=== PATIENT | male | born 1990 | race Caucasian/White ===

== ENCOUNTER 2023-02-03 18:41 | Emergency (ER) | payer SELFPAY ==
[2023-02-03 18:59] VITALS: BP 142/77; PULSE 76; RESP 16; TEMP 36.9; O2SAT 97; BMI 34.0
--- NOTE | 2023-02-03 20:52 | CRLHL7_ITS ---
For Patients: As a result of the Century Cures Act, medical imaging exams and procedure reports are released immediately into your electronic medical record. You may view this report before your referring provider. If you have questions, please contact your health care provider. Indication: Testicular pain. Technique: Ultrasound of the scrotum and contents. Sonographic thomas-scale images were obtained with spectral and color Doppler waveform and spectral waveform analysis of the testicles. Comparison: None. Findings: Bother testicles are normal in size and echotexture. No masses. No suspicious calcifications. Arterial and venous color Doppler blood flow and spectral waveforms are present in both testicles. Epididymis: Bilateral epididymal head cysts, measuring up to 2.2 centimeters on the right side and 0.8 centimeters on the left side. Normal blood flow. Other: No significant hydrocele. No sign of varicocele. Scrotal wall is normal. Impression: Bilateral epididymal head cysts, measuring up to 2.2 centimeters on the right side is 0.8 centimeters on the left side. Otherwise, unremarkable ultrasound of the scrotum and contents. No sign of torsion or inflammation. Dictated by John Frey MD @ 02/03/2023 9:32:38 PM (Electronically Signed)
--- NOTE | 2023-02-03 21:16 | ED_ITS ---
HPI - General Adult General Date Seen: 02/03/23 Chief complaint: Groin Pain Stated complaint: Testicular pain Time Seen by Provider: 02/03/23 21:16 Source: patient, RN notes reviewed and old records reviewed Mode of arrival: ambulatory Limitations: no limitations History of Present Illness HPI narrative: Selvin is a very pleasant 32-year-old male with history of possible kidney stone who comes to the emergency room with acute onset of right groin pain. Patient notes that he was sitting typing when he had the onset of pain in his right testicle that would radiate upward. He notes that the pain was coming and weighs was gradually building to what he describes as a 10/10. He notes no recent injury chills or dysuria. Here in the emergency room he notes that the pain is at baseline of 4 and then will radiate up to a 10. Occasionally associated with nausea but no vomiting. Patient has chronically loose stools and this has not changed. He notes no dysuria hematuria. Upon his arrival he was triaged immediately for ultrasound given concern for testicular torsion. This has been returned as negative. Related Data Allergies Allergy/AdvReac Type Severity Reaction Status Date / Time buspirone [From BuSpar] AdvReac Severe Rash Verified 02/03/23 23:57 cefaclor [From Ceclor] AdvReac Severe Verified 02/03/23 23:57 ciprofloxacin [From Cipro] AdvReac Severe Rash Verified 02/03/23 23:57 levetiracetam [From Keppra] AdvReac Severe Confusion Verified 02/03/23 23:57 Review of Systems Status of ROS: Reports: 10 or more systems reviewed and unremarkable except as noted in History and below Const: Denies: fever, chills or fatigue ENMT: Denies: throat pain or difficulty swallowing Cardio: Denies: chest pain, palpitations, swelling of feet/ankles, lightheadedness or shortness of breath with exertion Resp: Denies: shortness of breath or cough GI: Reports: nausea and diarrhea (Chronic); Denies: abdominal pain, vomiting or difficulty swallowing : Reports: genital pain; Denies: painful urination, urinary frequency, blood in urine, penile discharge or scrotal swelling Musculo: Denies: back pain Endo: Denies: fatigue PFSH PFSH Social History Non-prescribed substance use: denies use Exam Narrative: Exam Narrative: Alert and oriented. Seems uncomfortable but not in no acute distress. EOM is full. Heart with a regular rate and rhythm and lungs are clear. Abdomen is tender right lower quadrant positive CVA tenderness with percussion which is felt in the right groin. Patient has some sensitivity noted in the extreme right lower quadrant. No real rebound tenderness however. I do not feel any masses. Exquisite tenderness of the right testicle is noted. No unusual appearance of the scrotum. Moving all extremities. Const: Vital Signs, click to edit/add: Vital Signs - 24 hr 02/03/23 18:59 Temperature 98.4 F Pulse Rate [Right Pulse Oximeter] 76 Respiratory Rate 16 Blood Pressure [Ri ght Upper Arm] 142/77 H Pulse Oximetry 97 Oxygen Delivery Me thod Room Air Documenting provider has reviewed patient's vital signs: yes Course Course Hospital Course: At this time patient has a negative ultrasound for torsion which is reassuring. He does have some cysts noted but no other abnormalities. I am awaiting a urine from him and thinks that we will need to proceed with a CT and blood work given the level of his discomfort. Differential diagnosis does include ureteral colic, kidney stone, epididymitis, hernia. Patient initially seen in triage and given ibuprofen. At this time will place an IV and give him morphine 4 mg and Zofran 4 mg. Reevaluation(s) Reevaluation #1: Reassuring CT at this time. Patient notes that pain much improved after morphine but seems to occasionally come in waves. Vital Signs Vital signs: Initial Vital Signs Temperature 98.4 F 02/03/23 18:59 Temperature Source Temporal Artery Scan 02/03/23 18:59 Pulse Rate 76 02/03/23 18:59 Pulse Rhythm Regular 02/03/23 18:59 Pulse Strength 3+ Normal 02/03/23 18:59 Respiratory Rate 16 02/03/23 18:59 Blood Pressure 142/77 H 02/03/23 18:59 Blood Pressure Mean 98 02/03/23 18:59 Blood Pressure Position Sitting 02/03/23 18:59 Pulse Oximetry 97 02/03/23 18:59 Oxygen Delivery Method Room Air 02/03/23 18:59 Vital Signs Temperature 98.4 F 02/03/23 18:59 Pulse Rate 76 02/03/23 18:59 Respiratory Rate 16 02/03/23 18:59 Blood Pressure 142/77 H 02/03/23 18:59 Pulse Oximetry 97 02/03/23 18:59 Oxygen Delivery Method Room Air 02/03/23 18:59 Temperature 98.4 F 02/03/23 18:59 Pulse Rate 76 02/03/23 18:59 Respiratory Rate 16 02/03/23 18:59 Blood Pressure 142/77 H 02/03/23 18:59 Pulse Oximetry 97 02/03/23 18:59 Oxygen Delivery Method Room Air 02/03/23 18:59 Medical Decision Making MDM Narrative Medical decision making narrative: 1. Groin pain-suspect epididymitis with tenderness of the testicle even though ultrasound is reassuring. No evidence of testicular torsion or mass. Patient does have 2.2 cm epididymal cyst. Will treat with doxycycline 100 mg p.o. b.i.d. for 14 days. Would ask that he follow-up with his primary MD if he does not have complete resolution of symptoms. If he actually has worsening symptoms he will need to return to the emergency room or seek attention with Urology. At this time no evidence of kidney stone, hematuria, UTI, scrotal infection, h ernia. 2. Disposition-home at this time. Seek medical attention for worsening symptoms. For pain patient may continue ibuprofen 600 mg p.o. q.8 hours p.r.n.. A small amount of [place] 5/325 1-2 tabs p.o. Q 4-6 hours p.r.n. continued pain is also issued via [employer]. Dictation done with voice recognition, and as a result, wrong word or [id number]-[id number] substitutions may have occurred.? There may be errors in the script that have gone undetected.? Please consider this when interpreting information found in this chart. Medical Records Medical records reviewed: Yes I reviewed the patient's medical records Lab Data Lab results reviewed: Yes I reviewed the patient's lab results Labs: Lab Results 02/03/23 02/03/23 Range/Units 21:56 22:25 WBC 7.15 (4.50-11.00) K/uL RBC 4.90 (4.30-5.90) m/uL Hgb 15.2 (13.5-17.5) gm/dL Hct 44.6 (37.0-53.0) % MCV 91 (80-100) fL MCH 31 (26-34) pg MCHC 34 (32-36) gm/dL RDW Coeff of [place] 12.3 (11.5-15.5) % Plt Count 278 (140-440) K/uL Neut % (Auto) 44.8 (42.0-72.0) % Lymph % (Auto) 40.8 (20-44) % Garland % (Auto) 11.0 (0.0-11.0) % Eos % (Auto) 2.8 (0.0-7.0) % Baso % (Auto) 0.3 (0.0-3.0) % Neut # (Auto) 3.20 (1.7-7.0) K/uL Lymph # (Auto) 2.92 H (0.90-2.90) K/uL Garland # (Auto) 0.80 (0.00-0.90) K/UL Eos # (Auto) 0.20 (0.00-0.50) K/uL Baso # (Auto) 0.02 (0.00-0.30) K/uL Sodium 136 (135-149) mmol/L Potassium 4.0 (3.6-5.1) mmol/L Chloride 103 (96-114) mmol/L Carbon Dioxide 28 (20-32) mmol/L BUN 11 (5-24) mg/dL Creatinine 0.8 (0.5-1.5) mg/dL Estimated Creat Clear 130.11 Estimated GFR 119 ml/min Glucose 97 (60-115) mg/dL Calcium 8.8 (8.4-10.6) mg/dL C-Reactive Protein 0.8 (0.5-1.0) mg/dL Urine Color Yellow (Yellow) Urine Appearance Clear (Clear) Urine pH 7.0 (5.0-8.5) Ur Specific [place] 1.020 (1.000-1.030) Urine Protein 1+ A (Negative) Urine Glucose (UA) Negative (Negative) Urine Ketones Trace A (Negative) Urine Blood Negative (Negative) Urine Nitrite Negative (Negative) Urine Bilirubin Negative (Negative) Urine Urobilinogen 0.2 (0.2-1.0) Ur Leukocyte Esterase Negative (Negative) Urine RBC 0-2 (0-2) Urine WBC 0-2 (0-5) Ur Squamous Epith Cells Few (None-Few) Amorphous Sediment Many A (None) Urine Bacteria Few A (None) C.trachomatis Ampl DNA NOT DETECTED (No Detected) N.gonorrhoeae Ampl DNA NOT DETECTED (No Detected) Imaging Data Scrotal ultrasound: Attestation: I have reviewed the pertinent imaging results. CT scan - abdomen: Attestation: I have reviewed the pertinent imaging results. My impression: I have CE no evidence of ureteral stone. Radiologist's impression: Lower chest: Scattered atelectasis. Liver: Unremarkable. Normal in size and attenuation. No suspicious masses. Gallbladder and bile ducts: Unremarkable. No stones or inflammation. No biliary dilatation. Pancreas: Unremarkable. No mass or inflammation. Spleen: Unremarkable. Normal in size. No masses. Adrenal glands: Unremarkable. No nodules. Kidneys: Unremarkable. No suspicious masses, stones, or hydronephrosis. GI tract: Mild colonic diverticulosis. 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 Normal in caliber. No sign of mass or inflammation. Normal appendix. Vasculature: Abdominal aorta is normal in caliber. Mesenteric arteries are patent. Lymph nodes: No lymphadenopathy. Peritoneum/Abdominal Wall: Tiny fat containing umbilical hernia. Tiny left-sided fat containing inguinal hernia no sign of mass or infiltration. No free air or significant free fluid. Pelvis: Unremarkable. Bones: Unremarkable for age. IMPRESSION: Tiny fat containing left-sided inguinal hernia, unchanged since 2019. Otherwise, no acute intra-abdominal/pelvic abnormality. Please note that all CT scans at this facility use dose modulation, iterative reconstruction, and/or weight-based dosing when appropriate to reduce radiation dose to as low as reasonably achievable. Discharge Plan Discharge Clinical Impression: Acute pain in scrotum Patient Disposition: Home w/ Parent or Adult Condition: Improved Additional Instructions: Start doxycycline antibiotic tonight. For pain ibuprofen 600 mg every 8 hours as needed. For continued pain Vicodin which is a combination medication of the narcotic hydrocodone and Tylenol may be used. Both doxycycline and Vicodin will be available in the vending machine. Follow-up with your primary MD this week if you have do not have complete resolution of your symptoms. Seek medical attention by returning to the emergency room more another hospital if you have worsening symptoms. Follow Up/Referrals: Provider,Not a Local [Primary Care Provider] - Stand Alone Forms: MyHealth Info Instructions
[2023-02-03] MEDS: IBUPROFEN 400 MG TABLET 800 MG PO (22:05)
[2023-02-03 22:33] LABS: Basophils Absolute Auto 0.02 K/uL (0.00-0.30); Basophils Percent Auto 0.3 % (0.0-3.0); Eosinophils Percent Auto 2.8 % (0.0-7.0); Hematocrit 44.6 % (37.0-53.0); Hemoglobin* 15.2 gm/dL (13.5-17.5); Immature Granulocytes Abs Auto 0.02 K/uL (0.00-0.30); Immature Granulocytes Pct Auto 0.3 %; Lymphocytes Absolute Auto 2.92 K/uL (0.90-2.90); Lymphocytes Percent Auto 40.8 % (20-44); Mean Corpuscular HGB Conc 34 gm/dL (32-36); Mean Corpuscular Hemoglobin 31 pg (26-34); Mean Corpuscular Volume 91 fL (80-100); Neutrophils Percent Auto 44.8 % (42.0-72.0); Platelet Count* 278 K/uL (140-440); RDW Coefficient of Variation % 12.3 % (11.5-15.5); White Blood Count* 7.15 K/uL (4.50-11.00)
[2023-02-03 22:37] LABS: Slide Review Reflex No
[2023-02-03 22:52] LABS: Appearance Urine Clear (Clear); Bilirubin Urine Negative (Negative); Blood Urine Negative (Negative); Color Urine Yellow (Yellow); Glucose Urine Negative (Negative); Ketones Urine Trace (Negative); Leukocyte Esterase Urine Negative (Negative); Nitrite Urine Negative (Negative); Protein Urine 1+ (Negative); Urobilinogen Urine 0.2 (0.2-1.0)
[2023-02-03 23:04] LABS: Amorphous Sediment Urine Many; Bacteria Urine Few; RBC Urine 0-2 (0-2); Squamous Epithelial Cell Urine Few (None-Few); WBC Urine 0-2 (0-5)
[2023-02-03 23:06] LABS: Chloride* 103 mmol/L (96-114); Sodium* 136 mmol/L (135-149)
[2023-02-03 23:09] LABS: Blood Urea Nitrogen* 11 mg/dL (5-24); Carbon Dioxide* 28 mmol/L (20-32); Creatinine* 0.8 mg/dL (0.5-1.5); Est. Creatinine Clearance* 130.11; Estimated Glomerular Filt Rate 119 ml/min
[2023-02-03 23:10] LABS: Calcium* 8.8 mg/dL (8.4-10.6); Glucose* 97 mg/dL (60-115)
[2023-02-03 23:12] LABS: C Reactive Protein* 0.8 mg/dL (0.5-1.0)
[2023-02-03] MEDS: ONDANSETRON 2 MG/ML inj 4 MG IVP (23:14)
[2023-02-03] MEDS: MORPHINE 4 MG/ML INJ IVP (23:14)
--- NOTE | 2023-02-03 23:22 | CRLHL7_ITS ---
For Patients: As a result of the Century Cures Act, medical imaging exams and procedure reports are released immediately into your electronic medical record. You may view this report before your referring provider. If you have questions, please contact your health care provider. INDICATION: Left lower abdominal/groin pain. TECHNIQUE: CT abdomen and pelvis acquired with 100 cc Omnipaque 350 IV contrast. COMPARISON: None. FINDINGS: Lower chest: Scattered atelectasis. Liver: Unremarkable. Normal in size and attenuation. No suspicious masses. Gallbladder and bile ducts: Unremarkable. No stones or inflammation. No biliary dilatation. Pancreas: Unremarkable. No mass or inflammation. Spleen: Unremarkable. Normal in size. No masses. Adrenal glands: Unremarkable. No nodules. Kidneys: Unremarkable. No suspicious masses, stones, or hydronephrosis. GI tract: Mild colonic diverticulosis. 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 Normal in caliber. No sign of mass or inflammation. Normal appendix. Vasculature: Abdominal aorta is normal in caliber. Mesenteric arteries are patent. Lymph nodes: No lymphadenopathy. Peritoneum/Abdominal Wall: Tiny fat containing umbilical hernia. Tiny left-sided fat containing inguinal hernia no sign of mass or infiltration. No free air or significant free fluid. Pelvis: Unremarkable. Bones: Unremarkable for age. IMPRESSION: Tiny fat containing left-sided inguinal hernia, unchanged since 2019. Otherwise, no acute intra-abdominal/pelvic abnormality. Please note that all CT scans at this facility use dose modulation, iterative reconstruction, and/or weight-based dosing when appropriate to reduce radiation dose to as low as reasonably achievable. Dictated by John Frey MD @ 02/04/2023 12:14:47 AM (Electronically Signed)
[2023-02-04 00:18] LABS: Chlamydia DNA Amplified* NOT DETECTED (No Detected); GC DNA Amplified* NOT DETECTED (No Detected)
[2023-02-04 00:58] VITALS: BP 130/80; PULSE 77; RESP 16; TEMP 36.9; O2SAT 98
== END 2023-02-04 01:00 | disposition home or self-care (01) ==
PROVIDERS: Emergency Provider Family Medicine
DX: N50.819 Testicular pain, unspecified (principal)
CPT/HCPCS: 36415; 74177; 76870; 80048; 81001; 85025; 86140; 87086; 87491; 87591; 93976; 96374; 96375; 99284; 99285; A9270; J2270; J2405; Q9967

== ENCOUNTER 2025-01-07 06:55 | Outpatient (CLI) | payer MEDICAID, SELFPAY ==
--- NOTE | 2025-01-07 07:15 | MR_ITS ---
[facility] [address] [facility] [address] Phone:?[phone] Fax:?[phone] Referring Physician Information: Dequan Reid M.D. [id number] [address] Phone:?[phone] Fax:?[phone] Patient:Maureen Middleton D.O.B:?1990 Sex:?Male Phone:?[phone] [facility] MRN:?[id number] Exam Date:?01/07/2025 EXAM: MRI OF THE RIGHT KNEE CLINICAL INFORMATION: The patient is a 34-year-old with right knee pain. Evaluate for meniscal tear. PRIOR SURGERY: None reported. COMPARISON STUDIES: Comparison is made to prior radiographs dated 12/30/2024. TECHNICAL INFORMATION: Imaging was performed on a high-field, 1.5 Ana Lilia MR scanner. Axial proton-density and fat-suppressed T2 imaging of the right knee was performed in addition to sagittal proton-density and fat-suppressed proton- density imaging. Coronal proton-density and coronal STIR imaging was also performed. FINDINGS: Articular/Extraarticular collections: Effusion: Mild. Popliteal cyst: Minimal. Loose bodies: No well-defined intra-articular loose bodies are seen. Subcutaneous and extraarticular soft tissues: Mild nonspecific subcutaneous soft tissue edema and/or hemorrhage can be seen along the anterior aspect of the knee on sagittal series 6 image 13. Osseous structures: No evidence for marrow edema or cortical injury. No evidence for fracture or stress injury. No evidence for destructive bony lesion. Ligamentous structures: ACL: Intact and normal in appearance. PCL: Intact and normal in appearance. MCL: Intact and normal in appearance. LCL: Intact and normal in appearance. Posterolateral corner: Intact and normal in appearance. Posteromedial corner: No posteromedial corner soft tissue injury. Semimembranosus and pes anserine tendons demonstrate no tendinopathy or associated bursitis. Extensor mechanism/Patellar retinacular structures: Patellar tendon: There is tendinosis of the distal patellar tendon with thickening and increased intrasubstance signal intensity seen on sagittal series 6 image 12. No well-defined transverse tearing is identified. Quadriceps tendon: Mild tendinosis of the distal quadriceps tendon can be seen. There is no evidence for transverse tearing. Retinacula: The medial and lateral retinacula are intact. The medial patellofemoral ligament is intact. Medial compartment: Medial meniscus: No evidence for medial meniscal tearing can be seen. There is no evidence for parameniscal cyst formation. No meniscocapsular separation injury is identified. Medial femoral condyle: No chondromalacia, chondral defect, or osteochondral abnormality. Medial tibial plateau: No chondromalacia, chondral defect, or osteochondral abnormality. Lateral compartment: Lateral meniscus: Intrasubstance degeneration of the posterior and middle one thirds of the lateral meniscus can be seen, however no discrete areas of well- defined tearing can be seen. No parameniscal cyst formation is identified. Lateral femoral condyle: No chondromalacia, chondral defect, or osteochondral abnormality. Lateral tibial plateau: No chondromalacia, chondral defect, or osteochondral abnormality. Patellofemoral compartment: Patella: Grade II chondromalacia of the medial and lateral patellar facets can be seen. No definite full-thickness chondral defects are identified. Trochlea: No chondromalacia, chondral defect, or osteochondral abnormality. Neurovascular: No definite neurovascular abnormalities are seen. CONCLUSION: 1. Degeneration of the lateral meniscus. No well-defined medial or lateral meniscal tearing is seen. 2. Chondromalacia of the patella. No full-thickness chondral defects about the knee are noted. 3. Distal quadriceps and distal patellar tendinosis. 4. The cruciate and collateral ligaments appear intact. 5. No acute bony abnormalities are noted. [facility] Electronically signed on 01/07/2025 9:45:00 AM by Negro Quintana M.D.
== END 2025-01-07 06:56 | disposition home or self-care (01) ==
PROVIDERS: Visit Provider Orthopaedic Surgery
DX: M25.561 Pain in right knee (principal); M22.41 Chondromalacia patellae, right knee
CPT/HCPCS: 73721

== ENCOUNTER 2025-01-24 09:00 | Outpatient (RCR) | payer BC, SELFPAY | END 2025-02-14 14:38 | disposition home or self-care (01) | PROVIDERS: Visit Provider Orthopaedic Surgery | DX: M22.40 Chondromalacia patellae, unspecified knee (principal); M25.561 Pain in right knee; Z51.89 Encounter for other specified aftercare | CPT/HCPCS: 97110; 97161 ==

== ENCOUNTER 2025-08-14 17:09 | Emergency (ER) | payer OTHER, SELFPAY ==
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
--- OUTSIDE RECORDS SUMMARY | 2025-08-14 17:11 | XMS_ITS | Clinical Summary ---
Author Organization [facility] Address [address] [place] [address] Care Team Providers Care Professor Of Industrial Technology Name Role Phone Pcp, No Primary Care Provider Unavailabl e Allergies Active AllergyReactionsCriticalityNoted DateCommentsBuspirone HclConfusion 02/16/2012uspironeChest Pain11/20/2011 PN: Contraindication with dilantin QkwtesqwWawa47/28/8402JxuzhxhrmabheTeeot86/21/5283Mybqpqxp-Thekuxsuyc-Oynp-Hc Vjpoeiw0410/17/2020yclobenzaprineShortness Of Zvdhfj5101/25/2013 PN: interacts with dilantin. OotiixtrweexiLmotdczi88/25/2010 Medications * This document contains information received from the source organization and may not represent a complete record from that organization. MedicationSigDispense QuantityRefillsLast FilledStart DateEnd DateStatus phenytoin extended (DILANTIN) 100 mg ER capsule Take 200 mg by mouth.12/02/2017Active hydrocortisone (HYTONE) 2.5 % ointment Indications:Chronic eczematoid otitis externa of right earApply to ear canal with a Q tip twice weekly. 28.35 g ctive albuterol HFA (Ventolin HFA) 90 mcg/actuation inhaler Indications:BronchitisInhale 2 Puffs by mouth 4 times daily if needed for Shortness Of Breath (Cough). 1 Each 07/01/2023ctive benzonatate (TESSALON) 200 mg capsule Indications:BronchitisTake 1 Capsule (200 mg) by mouth 3 times daily if needed for Cough. 21 Capsule 07/01/2023ctive Active Problems ProblemNoted DateDiagnosed DateEustachian tube disorder, mypkqurau82/04/2021 Acute diffuse otitis externa of right ear08/20/2020Obstructive sleep apnea 07/04/2014 Overview (07/01/2023): Overview: Setting: APAP 5-15 Suppliedby: [facility] PSG done: 04/11/14 AHI 23 RDI 24 Lowest O2 Sat: 86% Coretta 06/28/14 FFM 06/20/14 new ; Obstructive sleep apnea (adult) Setting: APAP 5-15 Supplied by: [facility] PSG done: 04/11/14 AHI 23 RDI 24 Lowest O2 Sat: 86% Coretta 06/28/14 FFM 06/20/14 new ; Obstructive sleep apnea (adult) Kgntcef0301/25/20132970Jlgmxiiq11/06/2011 Overview (07/01/2023): Overview: Unspecified epilepsy without mention of intractable epilepsy (HRC) Unspecified epilepsy with intractable epilepsy (HRC) Unspecified epilepsy without mention of intractable epilepsy (HRC) Abrasion, scalp w/o guihgbfvm87/25/2011Seizure wsuhgwpv79/01/2010ttention deficit dizhunrp23/19/2004 Overview (07/01/2023): Overview: LW Onset: 39Bel45 Attention deficit hyperactivity disorder (ADHD)07/06/2004 Overview (07/01/2023): LW Onset: 23Pml61 ; Attention DeficitDis w Hyperactivity Immunizations ImmunizationAdministration DatesNext CpeCHM5202/05/1994,04/23/1993,10/30/1989, 06/05/1989,02/12/1989Hepatitis A (Peds)10/06/2006Hepatitis B (Adult)07/24/2000, 05/23/2000Hepatitis B (Peds)02/05/2001,07/24/2000,05/23/2000Hepatitis B, Ewggorrcihc84/21/2001Influenza Virus, Nrvjlbxfeic32/02/1998Influenza, IIV3 (Age >=3 years)07/19/1998MMR1,04/23/1990Meningococcal Vaccine (Menactra) 10/06/2006Meningococcal Vaccine (Menomune)10/06/2006Oral Polio Axdkkzd4805/30/1989 ,03/17/1989Polio (Oral Polio Vaccine,Unspecified)05/30/1989,03/17/1989Polio Virus, Bxdylqpwrbx76/21/1994,04/23/1990,02/12/1989Td (Age >=7 Years)07/24/2000 Tdap08/20/2008Tetanus Xekxbr7911/17/2008Tuberculin (PPD)10/06/2006 Family History Medical HistoryRelationNameCommentsOtherFathermigraineHypertensionMotherOther MotheranemiaRelationNameStatusCommentsFatherMother Social History Tobacco UseTypesPacks/DayYears UsedDateSmoking Tobacco: NeverSmokeless Tobacco: NeverAlcohol UseStandard Drinks/WeekCommentsYes0 (1 standard drink = 0.6 oz pure alcohol)4-6 drinks per monthPHQ-2AnswerDate RecordedPHQ-2 TOTAL TXWKU222 Social ConnectionsAnswerDate RecordedFrequency of Communication with Friends and FamilyNot on file08/14/2021Financial Resource StrainAnswerDate Recorded Difficulty of Paying Living ExpensesNot on file08/14/2021ifficulty of Paying Living ExpensesNot on file08/14/2021ex and Gender InformationValueDate Recorded Sex Assigned at BirthNot on fileLegal WcqKmki7408/31/2012 5:24 AM CSTGender IdentityNot on fileSexual OrientationNot on file Last Filed Vital Signs Vital SignReadingTime TakenCommentsBlood Avietgel256/8211 7:09 PM FULL DECATOR OPERATOR Ztnfb5701 7:09 PM TJSUkzeymjfrmx69.1 ??C (97 ??F)07/01/2023 7:09 PM FULL DECATOR OPERATOR Respiratory Jdcq075408/31/2022 7:09 PM CSTOxygen Almuadrwlp30%07/01/2023 7:09 PM CSTInhaled Oxygen Concentration--Ufguac417.9 kg (240 lb)07/01/2023 7:09 PM FULL DECATOR OPERATOR Vmhunv637.3 cm (5' 9)11/08/2022 12:57 AM CDTBody Mass Index35.44011/08/2022 12:57 AM CDT Plan of Treatment Health MaintenanceDue DateLast DoneCommentsHIV for age 15-65012/15/2003Hepatitis C screening for age 18-7912/14/2006HPV series for age 9-45 (1 - 3-dose SCDM series)12/15/2015Tetanus zofqtsv17/03/, 07/24/2000BMI (ht and wt on same day) for age 18+, 01/13/2018, 01/08/2018Depression screening for age 12+ipids for age 35-4COVID-19 vaccine series ( - 2024- season)2025Influenza Vaccine (#1)2025 07/19/1998, 07/19/1998Hepatitis B series for 19+Mmathyujd10/21/2001, 02/05/2001, 07/24/2000, Additional history existsPneumococcal series for age 6-49Aged OutNo longer eligible based on patient's age to complete this topic Insurance [place] [id number] * Guarantor: Selvin Middleton AAccount TypeRelation to PatientDate of BirthPhone Billing AddressWorkers JaobUzeq10[birth year][address] [place] [address] on file * Guarantor: Selvin Middletoncount TypeRelation to PatientDate of BirthPhone Billing AddressPersonal/MpzmylHdza63/[birth year][address] [place] [address] * Guarantor: Selvin Middletoncount TypeRelation to PatientDate of BirthPhone Billing AddressMotor KbdrftfCwky72/[birth year][address] [place] [address] * Guarantor: Selvin Middletoncount TypeRelation to PatientDate of BirthPhone Billing AddressMotor JmphplqCqvd68/[birth year][address] [place] [address] * Guarantor: Selvin Middleton AAccount TypeRelation to PatientDate of BirthPhone Billing AddressMotor UbimmkrZoux41/[birth year][address] [place] [address] * Guarantor: Selvin Middleton AAccount TypeRelation to PatientDate of BirthPhone Billing AddressWorkers VjgdUlzg52/29/1991 [address] [place] [address] Care Teams Team MemberRelationshipSpecialtyStart DateEnd Date Pcp, No PCP - General09/13/20
--- OUTSIDE RECORDS SUMMARY | 2025-08-14 17:12 | XMS_ITS | Clinical Summary ---
Author Organization [facility] Address [address] [place] [address] Care Team Providers Care Freight Router Name Role Phone No Ref-Primary, Physician Primary Care Provider Allergies Active AllergyReactionsCriticalityNoted HzezUkbnvyooUwjzkeips96/06/2013 Drug Interaction with current drugs Cefaclor Arszqnqfysd07/02/8830Xzzreujkokvetmo91/30/2649Ttxruv55/02/2011 Medications MedicationSigDispense QuantityRefillsLast FilledStart DateEnd DateStatus Phenytoin Sodium Extended 300 MG CAPS Take 400 mg by mouth daily11/17/2010ctive OMEPRAZOLE PO Take by mouth as neededActive Active Problems ProblemNoted DateDiagnosed DateObstructive sleep apnea07/04/2014 Overview (06/06/2017): Overview: Setting: APAP 5-15 Supplied by: [facility] PSG done: 04/11/14 AHI 23 RDI 24 Lowest O2 Sat: 86% Coretta 06/28/14 FFM 06/20/14 new ; Obstructive sleep apnea (adult) Epileptic mtsgeqe4007/08/2013 Overview (06/06/2017): Overview: Unspecified epilepsy without mention of intractable epilepsy (HRC) Gaxngmt9901/25/2013Convulsions/dowdwcoy81/25/2011brasion, scalp w/o infection 04/11/2011ttention deficit jtgdezup24/19/2004 Overview (06/06/2017): Overview: LW Onset: 37Ocg14 Encounters DateTypeDepartmentCare EnavMrvlhcjkuaq09/22/2025 5:45 PM CSTOffice Visit M [facility] [place] [address] [place] [address] Estrella Arango, JF Bilateral eye injuries, initial encounter (Primary Dx)07/09/2025Travelfrom Last 3 Months Immunizations ImmunizationAdministration DatesNext WcdBzmrwun25/02/2009 Family History Medical HistoryRelationCommentsDiabetesMaternal GrandmotherDiabetesMaternal UncleHypertensionMotherCerebrovascular DiseasePaternal GrandmotherCancerNo family hx ofGlaucomaNo family hx ofMacular DegenerationNo family hx ofThyroid DiseaseNo family hx ofRelationStatusCommentsMaternal GrandmotherMaternal Uncle MotherPaternal Grandmother Social History Tobacco UseTypesPacks/DayYears UsedDateSmoking Tobacco: NeverSmokeless Tobacco: NeverAlcohol UseStandard Drinks/WeekCommentsNo4.2 (1 standard drink = 0.6 oz pure alcohol)Sex and Gender InformationValueDate RecordedSex Assigned at Not on fileLegal DzvSshk93/04/2012 3:22 AM CSTGender IdentityNot on fileSexual OrientationNot on file Last Filed Vital Signs Vital SignReadingTime TakenCommentsBlood Huheiblw027/7407/09/2025 5:45 PM CORN CHIP MAKER Owmkd522907/09/2025 5:45 PM LNGCzfizyltest17.3 ??C (97.3 ??F)07/09/2025 5:45 PM CSTRespiratory Dghi695004/07/2020 11:51 PM CDTOxygen Jkoacegmrh86%07/09/2025 5:45 PM CSTInhaled Oxygen Concentration--Jjfolr557.3 kg (258 lb 8 oz)07/09/2025 5:45 PM VVQBfcksr535.3 cm (5' 9)03/06/2020 12:26 PM CDTBody Mass Index38.17 03/06/2020 12:26 PM CDT Plan of Treatment Health MaintenanceDue DateLast DoneCommentsADVANCE CARE OEZRCRMA32/29/1989ANNUAL REVIEW OF HM MWMDDW48 1988YEARLY PREVENTIVE VISIT12/15/1991DTAP/TDAP/TD VACCINE (8 - Td or Tdap), 08/20/2008, 07/24/2000, Additional history existsDIABETES KHUUMUGME58, 02/07/2020, 09/07/2013, Additional history existsPHQ-2 (once per calendar year)2024OVID-19 VACCINE (2024- season)2025INFLUENZA VACCINE (#1) ZOSTER VACCINE (1 of 2)2038HEPATITIS B RXAWOLFUswoeuknx88/21/2001, 02/05/2001, 07/24/2000, Additional history existsMENINGITIS VACCINECompleted 10/06/2006HEPATITIS C QZGKDJEWKUjolrwyvv38/20/2010HIV SCREENINGCompleted 05/07/2010HPV VACCINE (No Doses Required)CompletedPNEUMOCOCCAL VACCINE: PEDIATRICS (0 to 5 YEARS) AND AT-RISK PATIENTS (6 to 49 YEARS)Aged OutNo longer eligible based on patient's age to complete this topic Procedures Procedure NamePriorityDate/TimeAssociated DiagnosisCommentsCOMPREHENSIVE METABOLIC UURDPERIP63/22/2020 12:34 AM CDT HIV 1 AND 2 ANTIBODY (QUEST)Fwmxnfu5105/07/2010 10:36 AM CDT HEPATITIS C XTOMCURJTwhitqr91/20/2010 10:36 AM CDT from Last 3 Months or Most Recently Relevant to Health Maintenance Results * (ABNORMAL) Comprehensive metabolic panel (04/08/2020 12:34 AM CDT)Component ValueRef RangeTest MethodAnalysis TimePerformed AtPathologist SignatureSodium 922285 - 144 mmol/L04/08/2020 12:55 AM CDOLMSTED [facility]OSPITALPotassium3.5 3.4 - 5.3 mmol/L04/08/2020 12:55 AM [facility]Chloride10794 - 109 mmol/L04/08/2020 12:55 AM [facility]Carbon Qvhqpnp9869 - 32 mmol/L04/08/2020 1:01 AM [facility]Anion Gap33 - 14 mmol/L 04/08/2020 1:01 AM [facility]Glucose9670 - 99 mg/dL04/08/2020 1:01 AM [facility]ALTHUrea Qmyegcou897 - 30 mg/dL04/08/2020 1:01 AM [facility]ALTHCreatinine0.820.66 - 1.25 mg/dL04/08/2020 1:01 AM [facility]ALTHGFR Estimate>90>60 mL/min/{1.73_m2}04/08/2020 1:01 AM [facility]Comment: Non GFR Calc Starting 08/04/2018, serum creatinine based estimated GFR (eGFR) will be calculated using the Chronic Kidney Disease Epidemiology Collaboration (CKD-EPI) equation. GFR Estimate If Black>90>60 mL/min/{1.73_m2}04/08/2020 1:01 AM [facility]Comment: GFR Calc Starting 08/04/2018, serum creatinine based estimated GFR (eGFR) will be calculated using the Chronic Kidney Disease Epidemiology Collaboration (CKD-EPI) equation. Calcium8.3(L)8.5 - 10.1 mg/dL04/08/2020 1:01 AM [facility] Bilirubin Total0.20.2 - 1.3 mg/dL04/08/2020 1:03 AM [facility]ENTERAlbumin3.63.4 - 5.0 g/dL04/08/2020 1:03 AM [facility] CENTERProtein Total7.16.8 - 8.8 g/dL04/08/2020 1:03 AM [facility] CENTERAlkaline Mefkyabqbqa09304 - 150 U/L04/08/2020 1:03 AM [facility] CENTERALT340 - 70 U/L04/08/2020 1:03 AM [facility] CENTERAST190 - 45 U/L04/08/2020 1:03 AM [facility]imen (Source)Anatomical Location / LateralityCollection Method / VolumeCollection TimeReceived TimeBlood specimen (specimen)04/08/2020 12:34 AM CDT04/08/2020 12:42 AM CDT Narrative Authorizing ProviderResult TypeResult StatusDevon MARKS - BLOOD ORDERABLESFinal ResultPerforming OrganizationAddressCity/State/ZIP CodePhone Number [facility] [address] [place] [address], [facility] [phone] [facility] [address] [place] [address], [facility] [phone] * HIV 1 and 2 Antibody (05/07/2010 10:36 AM CDT)ComponentValueRef RangeTest MethodAnalysis TimePerformed AtPathologist SignatureHIV 1&2 AntibodyNegative NEGMISYSSpecimen (Source)Anatomical Location / LateralityCollection Method / VolumeCollection TimeReceived Time05/07/2010 10:36 AM CDT05/07/2010 10:38 AM CDT Narrative Authorizing ProviderResult TypeResult StatusJonadine GUZMAN-JENNIFER - BLOOD ORDERABLESFinal ResultPerforming OrganizationAddressCity/State/ZIP CodePhone Number [facility] * Hepatitis C antibody (05/07/2010 10:36 AM CDT)ComponentValueRef RangeTest MethodAnalysis TimePerformed AtPathologist SignatureHepatitis C Antibody NegativeNEGMISYSSpecimen (Source)Anatomical Location / LateralityCollection Method / VolumeCollection TimeReceived Time05/07/2010 10:36 AM CDT05/07/2010 10:38 AM CDT Narrative Authorizing ProviderResult TypeResult StatusShyann GUZMAN-JENNIFER - BLOOD ORDERABLESFinal ResultPerforming OrganizationAddressCity/State/ZIP CodePhone Number [facility] from Last 3 Months or Most Recently Relevant to Health Maintenance Insurance * Guarantor: Selvin Middleton AAccount TypeRelation to PatientDate of BirthPhone Billing AddressPersonal/KyntfoNxeg37/29/1991 [address] [place] [address] * Guarantor: Selvin Middletoncount TypeRelation to PatientDate of BirthPhone Billing AddressWorker's IlnonhvfiosiBhvp05/29/1991 none (Work) [address] [place] [address] * Guarantor: Selvin Middletoncount TypeRelation to PatientDate of BirthPhone Billing AddressThird BgohlLqve59/29/1991 none (Work) [address] [place] [address] * Guarantor: Selvin Middletonunt TypeRelation to PatientDate of BirthPhone Billing AddressWorker's OjqrjkfmcynlQcdc79/29/1991 [address] [place] [address] * Guarantor: Selvin Middletonunt TypeRelation to PatientDate of BirthPhone Billing AddressThird GlbydQvvg43/29/1991 [address], [place] [address] Care Teams Team MemberRelationshipSpecialtyStart DateEnd Date No Ref-Primary, Physician PCP - General09/05/18
--- OUTSIDE RECORDS SUMMARY | 2025-08-14 17:12 | XMS_ITS | Clinical Summary ---
Author Organization [facility] Address [address] [place] [address] Care Team Providers Care Congressional Aide Name Role Phone Found, No Pcp MD Primary Care Provider Unavailab le Source Comments You are receiving this document as you are listed as the primary care provider,follow-up provider, or the patient has been referred to you for consultation.This is in compliance with the Medicare andMedicaid EHR Incentive Program,which states Providers who transition their patient to another setting of careor provider of care or refers their patient to another provider of care shouldprovide summary care record for each transition of care or referral. [employer] Allergies Active AllergyReactionsCriticalityNoted DateCommentsBuspironeChest Pain 11/20/2011 PN: Contraindication with dilantin CefaclorOther, see comments,Rash08/07/2003 turn into a strawberry, Imefwgabxeorchi02/10/2013 PN: interacts with dilantin. InxpofnaqnlkxMistmxp30/10/2007 PN: psychotic reaction Medications MedicationSigDispense QuantityRefillsLast FilledStart DateEnd DateStatus phenytoin ER (DILANTIN) 100 MG extended release capsule Indications:Convulsions, unspecified convulsion type (HRC)TAKE 4 CAPSULES (400 MG) BY MOUTH DAILY 360 Capsule 4Active phenytoin ER (DILANTIN) 100 MG extended release capsule Take 4 Capsules (400 mg) by mouth daily. 120 Capsule 508/502/6Active Active Problems ProblemNoted DateDiagnosed DateObstructive sleep apnea07/04/2014 Overview (04/09/2017): Setting: APAP 5-15 Supplied by: [facility] PSG done: 04/11/14 AHI 23 RDI 24 Lowest O2 Sat: 86% Coretta 06/28/14 FFM 06/20/14 new ; Obstructive sleep apnea (adult) Bhpmqihw28/21/2013 Overview (04/09/2017): Unspecified epilepsy without mention of intractable epilepsy (HRC) Cgprstt9701/25/2013Intractable mfsxudpm00/06/2011 Overview (04/09/2017): Unspecified epilepsy with intractable epilepsy (HRC) Convulsions/vbvplhza53/25/2011brasion, scalp w/o useemgqox74/25/2011Convulsions 01/22/2007 Overview (04/09/2017): LW Modifier: One episode December 2006 ; Seizure Disorder onset 2006 Attention deficit hyperactivity disorder (ADHD)07/06/2004 Overview (04/09/2017): LW Onset: 60Rdo94 ; Attention Deficit Dis w Hyperactivity Resolved Problems ProblemNoted DateDiagnosed DateResolved FgwvVeqibtvrp03 Overview (04/09/2017): LW Onset: 05888951 ; Varicella Zoster Encounters DateTypeDepartmentCare SeigKeeqaiqfkxj26/29/2025Ref[facility] [address] [place] [address] Parminder Kennedy, DO Refillfrom Last 3 Months Immunizations ImmunizationAdministration DatesNext JvjOIE87,02/12/1989HepA Ped/Adol (1-18 yrs)10/06/2006HepB Adult (Engerix-B, 20+ yrs, 3 dose series)07/24/2000, 05/23/2000HepB, Unspecified Lnsfzggdovp88/21/2001Influenza, Unspecified Fstgrhhyfvd09/02/7165XOZ4 (Menactra)10/06/2006MMR1OPV, Trivalent (Orimune or tOPV)05/30/1989,03/17/1989TB Skin Test (PPD)10/06/2006TDAP (ADACEL) 08/20/2008Td109/24/1999 Family History Medical HistoryRelationNameCommentsSeizure DisorderNegative Family History Social History Tobacco UseTypesPacks/DayYears UsedDateSmoking Tobacco: NeverSmokeless Tobacco: NeverAlcohol UseStandard Drinks/WeekCommentsNo0 (1 standard drink = 0.6 oz pure alcohol)rarelySex and Gender InformationValueDate RecordedSex Assigned at Not on fileLegal ZltZvee74/10/2012 4:50 AM CDTGender IdentityNot on fileSexual OrientationNot on fileOccupationIndustryJob Start DateJob End DateNot on fileNot on fileNot on fileNot on file Last Filed Vital Signs Vital SignReadingTime TakenCommentsBlood Rkbgwgin579/8410 10:53 AM CDT Upgmh9172 1:03 PM OOMZdpiuaznvti42.9 ??C (100.2 ??F)12/02/2022 11:37 PM CDTRespiratory Zzcu6430 10:53 AM CDTOxygen Rxmpbibtvo65%03/21/2025 1:03 PM CDTInhaled Oxygen Concentration--Vbussi026 kg (258 lb)03/21/2025 1:03 PM CDT Zavwin803.7 cm (5' 8)03/21/2025 1:03 PM CDTBody Mass Index39.2308 1:03 PM CDT Plan of Treatment DateTypeDepartmentCare Team (Latest Contact Info)Awthewgnaod46/19/2026 3:00 PM CDTAppointment Specialty Center [address] [place], [place] [address] Parminder Kennedy DO [address] [place] [address] Health MaintenanceDue DateLast DoneCommentsDiabetes Screening- (based on age and BMI)1988Hep C Screening (Preventive Services)1988HIV Screening (Preventive Services)2004Adult Preventive Visit2006HepA Vaccine (2 of 2 - Risk 2-dose series)DTaP/Tdap/Td Vaccine (7 - Tdap) , 07/24/2000, 02/05/1994, Additional history exists Oxjhysdpaej66/29/2024COVID-19 Vaccine (1 - 2024- season)2025Influenza Vaccine (#1)/09/1997Zoster/Shingles Vaccine (1 of 2)2038IPV (Polio) LcquicmXiwrkmwnu49/21/1994, 04/23/1990, 05/30/1989, Additional history existsHepB SlojhlkGnjfxpnan52/21/2001, 07/24/2000, 05/23/2000MCV4 Vaccine Xfxcssflo82/19/2007HPV Vaccine (No Doses Required)CompletedHib VaccineAged OutNo longer eligible based on patient's age to complete this topicMeningococcal B VaccineAged OutNo longer eligible based on patient's age to complete this topic Pneumococcal VaccineAged OutNo longer eligible based on patient's age to complete this topic Insurance * Guarantor: Selvin Middleton TypeRelation to PatientDate of BirthPhone Billing AddressPersonal/PboftsXmhb69/29/1991 [address] [place] [address] * Guarantor: Selvin Middleton TypeRelation to PatientDate of BirthPhone Billing AddressPersonal/CpuoifWtsa62/29/1991 [address] [facility] [place] [address] * Guarantor: Selvin Middleton AAccount TypeRelation to PatientDate of BirthPhone Billing AddressMVA/KOOVwbx86 [address] [place] [address] * Guarantor: Selvin Middleton AAccount TypeRelation to PatientDate of BirthPhone Billing AddressWorkers TefcXhqq48/29/1991 [address] [facility] [place] [address] * Guarantor: Selvin Middleton AAccount TypeRelation to PatientDate of BirthPhone Billing AddressMVA/LYHAipw99 1990 [address] [place] [address] [facility] Address: [facility] [address] [place] [address] Advance Directives * Full Code (Latest Code Status on File) Date ActivatedDate InactivatedComments04/12/2011 5:22 AM04/12/2011 6:03 PM Care Teams Team MemberRelationshipSpecialtyStart DateEnd Date Found, No Pcp, [address] [place] [address] PCP - [facility]12/02/22
--- OUTSIDE RECORDS SUMMARY | 2025-08-14 17:12 | XMS_ITS | Encounter Summary ---
Author Organization [facility] Address [address] [place] [address] Care Team Providers Care Lasting Machine Operator Hand Method Name Role Phone No Ref-Primary, Physician Primary Care Provider Encounter Details DateTypeDepartmentCare Team (Latest Contact Info)Xrszysccxab42/22/2025Travel Social History Tobacco UseTypesPacks/DayYears UsedDateSmoking Tobacco: NeverSmokeless Tobacco: NeverAlcohol UseStandard Drinks/WeekCommentsNo4.2 (1 standard drink = 0.6 oz pure alcohol)Sex and Gender InformationValueDate RecordedSex Assigned at Not on fileLegal TxgJpwa18/04/2012 3:22 AM CSTGender IdentityNot on fileSexual OrientationNot on filedocumented as of this encounter Plan of Treatment Not on file documented as of this encounter Visit Diagnoses Not on filedocumented in this encounter Care Teams Team MemberRelationshipSpecialtyStart DateEnd Date No Ref-Primary, Physician PCP - General09/05/18documented as of this encounter
--- OUTSIDE RECORDS SUMMARY | 2025-08-14 17:12 | XMS_ITS | Patient Health Record ---
Author Organization [facility] Address [address] [place] [address] Phone [phone] Care Team Providers Care Button Facing Machine Operator Name Role Phone None, None Primary Care Provider TESHA Corey MD Unavailable Allergies Allergen (clinical drug ingredient) Drug/Non Drug Allergy documented on EMR Reaction Allergy Type Onset Date Status BuSparUnknownDrug AllergyActiveFlexerilUnknownDrug AllergyActivelevetiracetam KeppraUnknownDrug AllergyActiveCECLORUnknownDrug AllergyActive Reason For Referral No Information Medications Medication SIG (Take, Route, Frequency, Duration) Notes Start Date End Date Diagnosis (ICD Code) Status Dilantin 100 MG Capsule 1 capsule Orally Three times a day also 30mg. Active Social History Sex Observation Social History Observation Description Sex Observation Male Social History :Social InfoQuestionAnswerNotesHow often do you consume alcohol?Answer:never Recreational drug useSocial InfoQuestionAnswerNotesDid you ever use recreational drugs?Answer:No Problems Problem Type SNOMED Code ICD Code Dates Problem Status W/U Sta tus Risk Notes Problem Abnormal auditory perception (84788500) Abnormal auditory perception (388.40) Added On:05/08/2015 Active confirmed Plan Of Treatment No Information Insurance Providers Payer Name Payer Address Payer Phone Subscriber Number Group Number Insured Name Patient Relationship to Insured Coverage Start Date Coverage End Date [place] [employer] [address] [address] [place], [place] [address] [id number] Leslie Middleton - patient is the insured Medical (General) History Medical History History ICD Code sleep apnea seizuresSurgical History Surgery Date(Month/Year) BMT x 2 Hospitalization History Reason Date(Month/Year) epilepsy
[2025-08-14 17:19] VITALS: BP 135/82; PULSE 85; RESP 18; TEMP 37.1; O2SAT 96; BMI 37.7
--- NOTE | 2025-08-14 17:30 | ED_ITS ---
HPI - Fall General Date Seen: 08/14/25 Chief Complaint: Fall/Minor Trauma Stated Complaint: fell- hit back of head Time Seen by Provider: 08/14/25 17:30 Source: patient and RN notes reviewed Mode of arrival: ambulatory Limitations: no limitations History of Present Illness HPI Narrative: Selvin is a very pleasant 34-year-old gentleman with remote history of frequent head injury when he was younger who comes to the emergency room after falling and hitting his head. Currently he is complaining of mild headache, neck pain and back pain. Patient notes that he was walking outside of a restaurant and he took 3 steps into the parking lot and his feet went out from under him, he fell flat onto the back of his head and back. His brother witness this and states he heard his head hit the pavement. Since that time Selvin notes some pain in the posterior aspect of his scalp and mild headache. No visual changes no vomiting since that time. He does note some neck pain with movement. Denies any numbness or tingling of the upper extremities. Denies chest pain shortness of breath. No abdominal pain. Denies lower extremity numbness tingling loss of bowel or bladder control. He does note tightness across his entire back. He is not currently on a blood thinner. Related Data Home Medications ?Medication ?Instructions ?Recorded ?Confirmed phenytoin sodium extended 100 mg 400 mg PO DAILY 02/1108/14/25 capsule Allergies Allergy/AdvReac Type Severity Reaction Status Date / Time buspirone (From BuSpar) AdvReac Severe Rash Verified 04/22/25 13:15 cefaclor (From Ceclor) AdvReac Severe Verified 04/22/25 13:15 ciprofloxacin (From Cipro) AdvReac Severe Rash Verified 04/22/25 13:15 levetiracetam (From Keppra) AdvReac Severe Confusion Verified 04/22/25 13:15 Review of Systems Status of ROS: Reports: 6 or more systems reviewed and unremarkable except as noted in History and below PFSH PFS Social History Non-prescribed substance use: denies use Exam Narrative: Exam Narrative: Alert and oriented. Nontoxic in appearance. He does appear to be uncomfortable however. His EOM is full pupils equal round reactive. Eyebrow raise smile intact. Head is with some mild tenderness in the scalp. No significant midline tenderness but patient does have pain with movement. Neck is otherwise supple. GCS of 15. Heart with regular rate and rhythm and lungs are clear. Abdomen soft nontender. Pelvis is stable. Lower extremities with movement intact. Palpation down thoracic spine shows tenderness noted at T6-7 and again at lumbar 2 and 3 no external signs of trauma. No evidence of ecchymosis. No step-offs are palpated. Right elbow is with ecchymosis at the elbow. Patient is able to extend and flex his elbow but it does cause pain. Const: Vital Signs, click to edit/add: Vital Signs - 24 hr 08/14/25 17:19 Temperature 98.7 F Pulse Rate [Pulse Oximeter] 85 Respiratory Rate 18 Blood Pressure [Ri ght Upper Arm] 135/82 Pulse Oximetry 96 Oxygen Delivery Me thod Room Air Documenting provider has reviewed patient's vital signs: yes Course Course ED Course: Differential diagnosis includes but is not limited to closed head injury, intracranial bleed, cervical spine fracture, thoracic spine fracture, elbow fracture, soft tissue injury. At this time will obtain CT of the head and neck as well as plain films of the thoracic spine, lumbar spine and right elbow. Reevaluation(s) Reevaluation #1: Fortunately no evidence of acute fracture. Patient continues to plane of neck pain but he is spontaneously moving his neck without difficulty. No evidence of upper extremity strength compromise. CT cervical spine reassuring. Patient did receive a dose of Toradol 30 mg IM. Vital Signs Vital signs: Initial Vital Signs Temperature 98.7 F 08/14/25 17:19 Temperature Source Temporal Artery Scan 08/14/25 17:19 Pulse Rate 85 08/14/25 17:19 Respiratory Rate 18 08/14/25 17:19 Blood Pressure 135/82 08/14/25 17:19 Blood Pressure Mean 99 08/14/25 17:19 Pulse Oximetry 96 08/14/25 17:19 Oxygen Delivery Method Room Air 08/14/25 17:19 Vital Signs Temperature 98.7 F 08/14/25 17:19 Pulse Rate 85 08/14/25 17:19 Respiratory Rate 18 08/14/25 17:19 Blood Pressure 135/82 08/14/25 17:19 Pulse Oximetry 96 08/14/25 17:19 Oxygen Delivery Method Room Air 08/14/25 17:19 Temperature 98.7 F 08/14/25 17:19 Pulse Rate 85 08/14/25 17:19 Respiratory Rate 18 08/14/25 17:19 Blood Pressure 135/82 08/14/25 17:19 Pulse Oximetry 96 08/14/25 17:19 Oxygen Delivery Method Room Air 08/14/25 17:19 Medications Administered Medications: Discontinued Medications Generic Name Dose Route Start Last Admin Trade Name Ronel PRJarret Reason Stop Dose Admin Ketorolac Tromethamine 30 mg 08/14/25 18:38 08/14/25 18:42 Ketorolac 30 Mg/Ml Inj IM 08/14/25 18:39 30 mg ONCE ONE Administration MDM - Fall MDM Narrative Medical decision making narrative: 1. Closed head injury -no evidence of skull fracture or intracranial bleed. Continue to monitor and seek medical attention for confusion, difficulty walking and as needed. 2. Cervical strain -CT reassuring. No midline tenderness. No guarding of movement. Return for worsening symptoms or numbness or tingling of the upper extremities 3. Soft tissue injury of the back, elbow-no evidence of fracture. Reassurance at this time. 4. Disposition-home at this time. Recommend alternating ibuprofen and Tylenol every 4 hours as needed for discomfort. I have also prescribed Flexeril as needed. Initially Selvin notes he is on pheytoin and wanted to know about any interactions. Did not flag in the computer. On Line there are various symptoms described. I did leave this up to patient to call his neurologist tomorrow to see if he should use this medication. He then told me that he does think he has used Flexeril in the past and did not have a problem with it. I have advised him not to use any other sedating medications or use alcohol. Will give him the next 48 hours off from his job as I do think he will be more sore tomorrow. He should use ice to areas of discomfort. Again, return for any worsening symptoms. Flexeril 10 mg 1/2-1 tablet every 8-12 hours as needed for discomfort number 30 from [employer]. Medical Records Attestation: I reviewed the patient's medical records. Imaging Data CT scan - head: Attestation: I have reviewed the pertinent imaging results. My impression: I do not note any acute intracranial bleed or skull fracture. Radiologist's impression: Vertebrae: Straightening of the cervical lordosis. Alignment is otherwise normal. There are no fractures or suspicious bony lesions. Discs and facet joints: Disc spaces and facets are within normal limits. Extraspinal findings: Prevertebral soft tissues, visualized airway, and visualized lungs are unremarkable. IMPRESSION: No acute bony abnormality of the cervical spine. Cervical spine CT: Attestation: I have reviewed the pertinent imaging results. My impression: No visualized fractures by my read Radiologist's impression: Vertebrae: Straightening of the cervical lordosis. Alignment is otherwise normal. There are no fractures or suspicious bony lesions. Discs and facet joints: Disc spaces and facets are within normal limits. Extraspinal findings: Prevertebral soft tissues, visualized airway, and visualized lungs are unremarkable. IMPRESSION: No acute bony abnormality of the cervical spine. Thoracic spine x-ray: Attestation: I have reviewed the pertinent imaging results. My impression: I do not note any fractures Radiologist's impression: Bones: Alignment is normal. No fractures or significant bone lesions. Joints: Disc spaces and facets are unremarkable. Soft tissues: Unremarkable. IMPRESSION: No acute bony abnormality of the lumbar spine. Lumbar spine x-ray: Attestation: I have reviewed the pertinent imaging results. My impression: I do not note any fractures Radiologist's impression: Bones: Alignment is normal. No fractures or significant bone lesions. Joints: Disc spaces and facets are unremarkable. Soft tissues: Unremarkable. IMPRESSION: No acute bony abnormality of the lumbar spine. Right elbow x-ray: Attestation: I have reviewed the pertinent imaging results. My impression: No obvious fractures by my read Radiologist's impression: Bones: Alignment is normal. No acute fracture or suspicious bone lesion. Joint spaces: Unremarkable. No elbow joint effusion. Soft tissues: Unremarkable. Impression: No evidence of an acute bony abnormality. Discharge Plan Discharge Clinical Impression: Soft tissue injury Cervical strain Qualifiers: Encounter type: initial encounter Qualified Code(s): S16.1XXA - Strain of muscle, fascia and tendon at neck level, initial encounter Closed head injury Qualifiers: Encounter type: initial encounter Qualified Code(s): S09.90XA - Unspecified injury of head, initial encounter Patient Disposition: Home, Self-Care Condition: Improved Additional Instructions: Alternate ibuprofen and Tylenol every 4 hours as needed for discomfort. Flexeril as needed for muscle spasm. Ice as needed to areas of discomfort. Return to the ER for worsening symptoms, numbness or tingling in the arms, increasing pain and as needed. Note for work for the next 48 hours off. Prescriptions: No Action phenytoin sodium extended 100 mg capsule 400 mg PO DAILY Follow Up/Referrals: Provider,Not a Local [Primary Care Provider, Family Practice] Stand Alone Forms: Work/School Release, MyHealth Info Instructions
--- NOTE | 2025-08-14 17:41 | CRLHL7_ITS ---
For Patients: As a result of the Century Cures Act, medical imaging exams and procedure reports are released immediately into your electronic medical record. You may view this report before your referring provider. If you have questions, please contact your health care provider. Indication: Fell and hit right elbow and back. Technique: Right elbow 2 views. Comparison: None. Findings: Bones: Alignment is normal. No acute fracture or suspicious bone lesion. Joint spaces: Unremarkable. No elbow joint effusion. Soft tissues: Unremarkable. Impression: No evidence of an acute bony abnormality. Dictated by Junior Lamb MD @ 08/14/2025 6:32:59 PM (Electronically Signed)
--- NOTE | 2025-08-14 17:41 | CRLHL7_ITS ---
For Patients: As a result of the Century Cures Act, medical imaging exams and procedure reports are released immediately into your electronic medical record. You may view this report before your referring provider. If you have questions, please contact your health care provider. INDICATION: Fell and hit back of head. TECHNIQUE: CT cervical spine without contrast. COMPARISON: None. FINDINGS: Vertebrae: Straightening of the cervical lordosis. Alignment is otherwise normal. There are no fractures or suspicious bony lesions. Discs and facet joints: Disc spaces and facets are within normal limits. Extraspinal findings: Prevertebral soft tissues, visualized airway, and visualized lungs are unremarkable. IMPRESSION: No acute bony abnormality of the cervical spine. Please note that all CT scans at this facility use dose modulation, iterative reconstruction, and/or weight-based dosing when appropriate to reduce radiation dose to as low as reasonably achievable. Dictated by Junior Lamb MD @ 08/14/2025 6:25:16 PM (Electronically Signed)
--- NOTE | 2025-08-14 17:41 | CRLHL7_ITS ---
For Patients: As a result of the Century Cures Act, medical imaging exams and procedure reports are released immediately into your electronic medical record. You may view this report before your referring provider. If you have questions, please contact your health care provider. INDICATION: Fell and hit back in elbow. TECHNIQUE: Lumbar spine 2 view. COMPARISON: 02/11/2025. FINDINGS: Bones: Alignment is normal. No fractures or significant bone lesions. Joints: Disc spaces and facets are unremarkable. Soft tissues: Unremarkable. IMPRESSION: No acute bony abnormality of the lumbar spine. Dictated by Junior Lamb MD @ 08/14/2025 6:40:15 PM (Electronically Signed)
--- NOTE | 2025-08-14 17:41 | CRLHL7_ITS ---
For Patients: As a result of the Century Cures Act, medical imaging exams and procedure reports are released immediately into your electronic medical record. You may view this report before your referring provider. If you have questions, please contact your health care provider. INDICATION: Fall and hit back and elbow. TECHNIQUE: Thoracic spine 3 view. COMPARISON: None. FINDINGS: Bones: Alignment is normal. No fractures or significant bone lesions. Joints: Disc spaces and facets are unremarkable. Soft tissues: Unremarkable. IMPRESSION: No acute bony abnormality of the thoracic spine. Dictated by Junior Lamb MD @ 08/14/2025 6:38:05 PM (Electronically Signed)
--- NOTE | 2025-08-14 17:41 | CRLHL7_ITS ---
For Patients: As a result of the Century Cures Act, medical imaging exams and procedure reports are released immediately into your electronic medical record. You may view this report before your referring provider. If you have questions, please contact your health care provider. INDICATION: Fell and hit back of head. TECHNIQUE: CT head without contrast. COMPARISON: None. FINDINGS: Brain parenchyma, CSF spaces, and extra-axial spaces: The thomas-white differentiation is normal. No sign of mass, hemorrhage, or midline shift. No hydrocephalus. No extra-axial fluid collection. Skull base and calvarium: The visualized paranasal sinuses demonstrate no acute or significant findings. The mastoid air cells are clear. The visualized orbits are grossly unremarkable. No skull fracture. Fatty atrophy of the right parotid gland. IMPRESSION: No evidence of an acute intracranial abnormality. Please note that all CT scans at this facility use dose modulation, iterative reconstruction, and/or weight-based dosing when appropriate to reduce radiation dose to as low as reasonably achievable. Dictated by Junior Lamb MD @ 08/14/2025 6:23:17 PM (Electronically Signed)
== END 2025-08-14 19:22 | disposition home or self-care (01) ==
PROVIDERS: Emergency Provider Family Medicine
DX: S09.90XA Unspecified injury of head, initial encounter (principal); S16.1XXA Strain of muscle, fascia and tendon at neck level, initial encounter; S50.01XA Contusion of right elbow, initial encounter; S39.92XA Unspecified injury of lower back, initial encounter; W00.0XXA Fall on same level due to ice and snow, initial encounter; Y93.01 Activity, walking, marching and hiking; Y92.481 Parking lot as the place of occurrence of the external cause
CPT/HCPCS: 70450; 72070; 72100; 72125; 73070; 96372; 99284; 99285; J1885